=== PATIENT | female | born 1940 | race Caucasian/White ===

== ENCOUNTER 2017-06-15 09:35 | Inpatient (IN) | payer OTHER, MEDICARE ==
[~2017-06-15] VITALS: Ht 162.6 cm; Wt 63.2 kg
[~2017-06-15 09:35] MED LIST: ASPI325T PO; BROM0.072 LEFT EYE; CALCCHW25 PO; CYAN1000P SQ; FURO20TA PO; GABA100C4 PO; LISI-357 PO; OMNI1SUS LEFT EYE; OXYC-360 PO; POTA10SO13 PO; REQU3TAB PO; VIGA0.5D LEFT EYE; [UNRECOGNIZED DRUG - CODE] OR
[2017-06-15 09:38] VITALS: BP 146/68; PULSE 60; RESP 20; TEMP 97.7; O2SAT 100
--- NOTE | 2017-06-15 09:56 | PD ---
HPI Chief Complaint: General Weakness Time Seen by Provider: 09:46 Travel History International Travel<30 days: No Contact w/Intl Traveler<30days: No Traveled to known affect area: No History of Present Illness HPI The patient was seen and examined in the presence of the nurse. This patient presents with a vague story. She says that she had a fall yesterday and she had a second fall this morning. Yesterday she was sitting on the commode and fell off and struck her head on the ground. Unknown LOC. Today she was lightheaded and fell. She complains of losing her balance. She denies chest pain or palpitations. She does complain of headache and neck pain from the fall. That seems to be her chief complaint. She took a hydrocodone for her restless leg syndrome which she says she rarely does. Denies overuse of medication. No alleviating factors. Symptoms severity is moderate. Duration 24 hours. No exacerbating factors PFSH Past Medical History Autoimmune Disease: Yes Blood Disorders: Yes (ANEMIA) Anxiety: Yes Depression: No Heart Rhythm Problems: Yes ("history of tachycardia") Cancer: Yes (COLON ) Chemotherapy: Yes Diminished Hearing: Yes ([place]) Endocrine: No Fibromyalgia: Yes Gastrointestinal Disorders: Yes ("chronic diarrhea" COLON RESECTION) Genitourinary: Yes Immune Disorder: Yes Kidney Stones: Yes (LITHOTRIPSY X 5) Musculoskeletal: No Neurologic: Yes Psychiatric: No Reproductive: No Respiratory: No : 2 Ovarian Cysts: Yes (and hx of ovarian tumors) Past Surgical History Abdominal Surgery: Yes ("part of large intestine removed,colon cancer") Appendectomy: Yes Cholecystectomy: Yes Hysterectomy: Yes Oral Surgery: Yes ("upper dentures") Other Surgery: Yes Social History Alcohol Use: No Tobacco Use: No Substance Use: No Allergies-Medications (Allergen,Severity, Reaction): Coded Allergies: Sulfa (Sulfonamide Antibiotics) (Unverified Allergy, Severe, hives, ) codeine (Unverified Allergy, Severe, vomiting, 06/15/17) erythromycin base (Unverified Allergy, Severe, hives, 06/15/17) meperidine (Unverified Allergy, Severe, Nausea/Vomiting, 06/15/17) pentazocine (Unverified Allergy, Severe, PROJECTILE VOMITING, HIVES, 06/15) vancomycin (Unverified Allergy, Severe, 06/15/17) ondansetron (Unverified Allergy, Mild, Rash, 06/15/17) amoxicillin (Unverified Adverse Reaction, Severe, vomiting,cramp, 06/15/17 ) clavulanic acid (Unverified Adverse Reaction, Severe, vomiting,cramp, ) Reported Meds & Prescriptions Reported Meds & Active Scripts Active Reported Ropinirole 2 Mg Tab 2 Mg PO BID Prednisone 10 Mg Tab 10 Mg PO DAILY Calcium 1000 + D (Calcium Carbonate-Cholecalciferol) 1,000-800 Mg-Unit Tab 5 Tab PO SUNDAY Potassium Chloride ER (Potassium Chloride) 20 Meq Tab 40 Meq PO DAILY PRN Lasix (Furosemide) 20 Mg Tab 20 Mg PO DAILY PRN Review of Systems General / Constitutional: No: Fever Eyes: No: Visual changes HENT: Positive: Headaches, Lightheadedness, Neck Pain Cardiovascular: No: Chest Pain or Discomfort Respiratory: No: Shortness of Breath Gastrointestinal: No: Abdominal Pain Genitourinary: No: Dysuria Musculoskeletal: Positive: Weakness, No: Pain Skin: No Rash Neurologic: Positive: Weakness, Dizziness, Headache Psychiatric: No: Depression Endocrine: No: Polydipsia Hematologic/Lymphatic: No: Easy Bruising Physical Exam Narrative GENERAL: Well-nourished, well-developed patient with head and neck pain . SKIN: Focused skin assessment reveals no rash and nodules. Skin is Warm and dry. HEAD: Atraumatic. Normocephalic. EYES: Pupils equal and round. No scleral icterus. No injection or drainage. ENT: No nasal bleeding or discharge. Mucous membranes pink and moist. NECK: Trachea midline. No JVD. No bruising or deformity. CARDIOVASCULAR: Regular rate and rhythm. No murmur appreciated. RESPIRATORY: No accessory muscle use. Clear to auscultation. Breath sounds equal bilaterally. GASTROINTESTINAL: Abdomen soft, non-tender, nondistended. Hepatic and splenic margins not palpable. MUSCULOSKELETAL: No obvious deformities. No clubbing. No cyanosis. No edema. No midline tenderness of the back NEUROLOGICAL: Awake and alert. No obvious cranial nerve deficits. Motor grossly within normal limits. Normal speech. PSYCHIATRIC: Appropriate mood and affect; insight and judgment seem reduced . Data Data Last Documented VS Vital Signs Date Time Temp Pulse Resp B/P (MAP) Pulse Ox O2 Delivery O2 Flow Rate FiO2 06/15/17 10:20 97.7 62 18 146/68 (94) 99 Room Air Orders Orders Ct Brain W/O Iv Contrast(Rout) (06/15/17 ) Ct Cerv Spine W/O Contrast (06/15/17 ) Iv Access Insert/Monitor (06/15/17 09:47) Complete Blood Count With Diff (06/15/17 09:47) Basic Metabolic Panel (Bmp) (06/15/17 09:47) Urinalysis - C+S If Indicated (06/15/17 09:47) Time Stamp Assembler / Telemetry ANTHONY.Q8H (06/15/17 09:47) Electrocardiogram (06/15/17 ) Prothrombin Time / Inr (Pt) (06/15/17 09:47) Act Partial Throm Time (Ptt) (06/15/17 09:47) Arterial Blood Gas (Abg) (06/15/17 ) Urinary Catheter Insert/Apply (06/15/17 10:32) Admit To Inpatient (06/15/17 ) Vital Signs (Adult) ANTHONY.Q4H (06/15/17 11:26) Activity Oob With Assistance (06/15/17 11:26) Time Stamp Assembler / Telemetry ANTHONY.Q8H (06/15/17 11:26) Sodium Chlor 0.45% 1000 Ml Inj (1/2 Ns 1 (06/15/17 11:26) Inpatient Certification (06/15/17 ) Labs Laboratory Tests Test 06/15/17 09:30 06/15/17 09:35 06/15/17 10:50 White Blood Count 6.2 TH/MM3 Red Blood Count 2.93 MIL/MM3 Hemoglobin 9.3 GM/DL Hematocrit 27.3 % Mean Corpuscular Volume 93.0 FL Mean Corpuscular Hemoglobin 31.8 PG Mean Corpuscular Hemoglobin Concent 34.2 % Red Cell Distribution Width 15.3 % Platelet Count 157 TH/MM3 Mean Platelet Volume 7.8 FL Neutrophils (%) (Auto) 78.6 % Lymphocytes (%) (Auto) 11.8 % Monocytes (%) (Auto) 8.6 % Eosinophils (%) (Auto) 0.5 % Basophils (%) (Auto) 0.5 % Neutrophils # (Auto) 5.0 TH/MM3 Lymphocytes # (Auto) 0.7 TH/MM3 Monocytes # (Auto) 0.5 TH/MM3 Eosinophils # (Auto) 0.0 TH/MM3 Basophils # (Auto) 0.0 TH/MM3 CBC Comment DIFF FINAL Differential Comment Prothrombin Time 11.2 SEC Prothromb Time International Ratio 1.0 RATIO Activated Partial Thromboplast Time 27.5 SEC Blood Urea Nitrogen 64 MG/DL Creatinine 5.40 MG/DL Random Glucose 99 MG/DL Calcium Level 7.7 MG/DL Sodium Level 144 MEQ/L Potassium Level 3.1 MEQ/L Chloride Level 115 MEQ/L Carbon Dioxide Level 16.2 MEQ/L Anion Gap 13 MEQ/L Estimat Glomerular Filtration Rate 8 ML/MIN Blood Gas Puncture Site R BRACH Blood Gas Patient Temperature 98.6 Blood Gas HCO3 12 mmol/L Blood Gas Base Excess -13.4 mmol/L Blood Gas Oxygen Saturation 96 % Arterial Blood pH 7.25 Arterial Blood Partial Pressure CO2 29 mmHG Arterial Blood Partial Pressure O2 130 mmHG Arterial Blood Oxygen Content 13.7 Vol % Arterial Blood Carboxyhemoglobin 0.7 % Arterial Blood Methemoglobin 1.8 % Blood Gas Hemoglobin 9.9 G/DL Oxygen Delivery Device ROOM AIR Blood Gas Inspired Oxygen 21 % [facility] Medical Decision Making Medical Screen Exam Complete: Yes Emergency Medical Condition: Yes Medical Record Reviewed: Yes Differential Diagnosis Intracranial hemorrhage, concussion, cervical fracture, vertigo Narrative Course I have reviewed the patient's electronic medical record. I've ordered extensive workup. Her presentation is vague IV placed I reviewed her EKG which shows sinus rhythm with frequent ectopic beats Extended cardiac monitoring reveals sinus rhythm with ectopy CBC shows anemia with hemoglobin of 9.3 Metabolic profile shows hypokalemia 3.1 and significant elevation of BUN/ creatinine with a GFR of only 8 Urinalysis is running Coagulation studies are normal CT of brain is negative CT of C-spine shows arthritic change without fracture Patient has significant renal failure. I believe acute on chronic. I spoke with her electrophonic engineer who confirms creatinine was 1.8 in December of this year so has had significant worsening. ABG reveals pH of 7.25 I gave her 1 amp sodium bicarbonate She may have some symptomatic uremia given her mental status change and falls and balance problems and other vague generalized complaints I spoke with her electrophonic engineer who suggested I call Dr. Crain to see the patient I spoke with Dr. Crain who declines to see the patient I spoke with on-call electrophonic engineer Dr. Raymundo who also declines to see the patient , noting that the patient's partner Dr. Husain has privileges here and should see the patient I then spoke with Dr. Husain who says he will find a electrophonic engineer see the patient. Hospitalist has been apprised of situation and will admit Diagnosis Primary Impression: Acute on chronic kidney failure Qualified Codes: N17.9 - Acute kidney failure, unspecified; N18.9 - Chronic kidney disease, unspecified Additional Impressions: Uremia syndrome Hypokalemia Head injury due to trauma Qualified Codes: S09.90XA - Unspecified injury of head, initial encounter Admitting Information Admitting Physician Requests: Herrera Jerry MD Jun 15, 2017 09:56
[2017-06-15 09:57] LABS: BASOPHIL % 0.5 % (0.0-2.0); EOSINOPHIL % 0.5 % (0.0-4.0); HEMATOCRIT 27.3 % (35.0-46.0); HEMOGLOBIN 9.3 GM/DL (11.6-15.3); LYMPH % 11.8 % (9.0-44.0); LYMPHOCYTE # 0.7 TH/MM3 (1.0-4.8); MEAN CORPUSCULAR HEMOGLOBIN 31.8 PG (27.0-34.0); MEAN CORPUSCULAR HGB CONC 34.2 % (32.0-36.0); MEAN PLATELET VOLUME 7.8 FL (7.0-11.0); MONO % 8.6 % (0.0-8.0); MONOCYTE # 0.5 TH/MM3 (0-0.9); NEUT % 78.6 % (16.0-70.0); PLATELET COUNT 157 TH/MM3 (150-450); RED BLOOD COUNT 2.93 MIL/MM3 (4.00-5.30); RED CELL DISTRIBUTION WIDTH 15.3 % (11.6-17.2); WHITE BLOOD COUNT 6.2 TH/MM3 (4.0-11.0)
[2017-06-15] MEDS ORDERED: ROPI2TAB PO (09:58)
[2017-06-15] MEDS ORDERED: PRED10 PO (09:58)
[2017-06-15] MEDS ORDERED: FURO1TAB62 PO (09:58)
[2017-06-15] MEDS ORDERED: CALCTAB80 PO (09:58)
[2017-06-15] MEDS ORDERED: POTA-163 PO (09:58)
[2017-06-15 10:07] LABS: CALCIUM 7.7 MG/DL (8.5-10.1)
[2017-06-15 10:08] LABS: BICARBONATE 16.2 MEQ/L (21.0-32.0); PROTHROMBIN TIME - PATIENT 11.2 SEC (9.8-11.6)
[2017-06-15 10:11] LABS: CREATININE 5.4 MG/DL (0.50-1.00)
--- NOTE | 2017-06-15 10:15 | RADRPT ---
EXAM DATE/TIME: 06/15/2017 10:03 [facility] COMPARISON: CT BRAIN W/O CONTRAST, July 16, 2013, 11:11. INDICATIONS : Trauma. Fall. Syncopal episode. Right head and neck pain. RADIATION DOSE: 64.03 CTDIvol (mGy) MEDICAL HISTORY : Carcinoma, colon. Renal calculi. SURGICAL HISTORY : Appendectomy. Cholecystectomy.Hysterectomy. ENCOUNTER: Initial ACUITY: 1 day PAIN SCALE: 7/10 LOCATION: cranial TECHNIQUE: Multiple contiguous axial images were obtained of the head. Using automated exposure control and adj ustment of the mA and/or kV according to patient size, radiation dose was kept as low as reasonably a chievable to obtain optimal diagnostic quality images. DICOM format image data is available electro nically for review and comparison. FINDINGS: CEREBRUM: The ventricles are normal for age. No evidence of midline shift, mass lesion, hemorrhage or acute in farction. No extra-axial fluid collections are seen. POSTERIOR FOSSA: The cerebellum and brainstem are intact. The 4th ventricle is midline. The cerebellopontine angle i s unremarkable. EXTRACRANIAL: The visualized portion of the orbits is intact. SKULL: The calvaria is intact. No evidence of skull fracture. CONCLUSION: Negative noncontrast CT brain. Berto Jacobs MD on June 15, 2017 at 10:13 Board Certified Radiologist. This report was verified electronically.
[2017-06-15 10:20] VITALS: BP 146/68; PULSE 62; RESP 18; TEMP 97.7; O2SAT 99
--- NOTE | 2017-06-15 10:50 | RADRPT ---
EXAM DATE/TIME: 06/15/2017 10:03 [facility] COMPARISON: CT CERVICAL SPINE W/O CONTRAST, July 16, 2013, 11:11. INDICATIONS : Trauma. Fall. Syncopal episode. Right head and neck pain. RADIATION DOSE: 24.78 CTDIvol (mGy) MEDICAL HISTORY : Carcinoma, colon. Renal calculi. SURGICAL HISTORY : Appendectomy. Cholecystectomy.Hysterectomy. ENCOUNTER: Initial ACUITY: 1 day PAIN SCALE: 7/10 LOCATION: Right neck TECHNIQUE: Volumetric scanning of the cervical spine was performed. Multiplanar reconstructions in the sagittal, coronal and oblique axial planes were performed. Using automated exposure control and adjustment o f the mA and/or kV according to patient size, radiation dose was kept as low as reasonably achievable to obtain optimal diagnostic quality images. DICOM format image data is available electronically f or review and comparison. FINDINGS: There is straightening of the upper cervical lordosis. Moderate severity degenerative changes at the C4-C7 interspaces with prominent anterior and posterior osteophytes have similar appearance and douglas rity when compared to prior CT cervical spine and 2013. The atlantoaxial articulation is intact. Th e posterior elements are normal without evidence of locked or perched facets. No fracture is seen. On the axial images, there is moderate severity left-sided bony neural foramina l stenosis at C4-5 and bilaterally at C5-6. Neural foraminal stenosis is similar in severity to prio r CT. CONCLUSION: 1. No evidence of compression deformity or spondylolisthesis. 2. Moderate severity discogenic degenerative changes in the lower cervical spine with neural foramina stenosis as described above. The overall severity is similar to prior CT scan 2013. Berto Jacobs MD on June 15, 2017 at 10:41 Board Certified Radiologist. This report was verified electronically.
[2017-06-15] MEDS ORDERED: SODIUM BICARBONATE 8.4% INJ 50 MEQ/50 ML SYR IV PUSH ONE (11:45)
[2017-06-15] MEDS: SODIUM CHLOR 0.45% 1000 ML INJ 1,000 ML IV SCH (12:18)
[2017-06-15 12:28] LABS: BILIRUBIN, URINE NEG (NEG); BLOOD, URINE SMALL (NEG); GLUCOSE,URINE NEG (NEG); KETONE, URINE NEG (NEG); NITRITE,URINE NEG (NEG); URINE LEUKOCYTE ESTERASE MOD (NEG)
[2017-06-15 12:35] LABS: URINE COLOR YELLOW (YELLW/STRAW)
[2017-06-15 12:36] LABS: BACTERIA, URINE MANY /hpf; SQUAMOUS EPITHELIAL CELL URINE 0-5 /hpf (0-5); WBC, URINE 100-200 /hpf (0-5); WHITE BLOOD CELL CLUMPS MANY
--- NOTE | 2017-06-15 12:58 | HHI.HP ---
[facility] Antonio Trammell MD Admission Diagnosis acute on chronic renal failure,uremia Diagnoses: Chief Complaint: passing out Travel History International Travel<30 Days: No Contact w/Intl Traveler <30 Da: No Traveled to Known Affected Are: No History of Present Illness 77-year-old female being admitted for acute renal failure with strokelike symptoms. Patient was in her usual state of health until about 2 nights ago when she first reported falling off the toilet seat. At that time she thought she was simply tired due to having poor sleep due to substantial social stressors, but is unsure if she actually had a true syncopal episode or not. She came to rather quickly and was able to go to sleep that night. Her symptoms recurred again early this morning when she was cutting pineapples while standing and then apparently fell onto the floor on her backside. She denies having any substantial shortness of breath or chest pain or palpitations immediately proceeding during or after the event. When she woke up she found herself on the floor and had a headache. She was able to stand up but noted that she had a very staggered wobbly unstable gait, did not linger to one side more than the other. She also reports having transient visual changes for a few minutes where she saw "gorgeous colors." She then went outside where her neighbor - who was walking her dog - noticed that she had garbled speech. At that point the patient contacted one of her other friends to bring her to the emergency room. Patient denies any noncompliance with her medication regimen, reports taking all her meds regularly in the past few days. 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 Past Surgical History colonic resection for colon cancer Appendectomy Cholecystectomy Hysterectomy Multiple eye surgeries including cataracts Allergies: Coded Allergies: Sulfa (Sulfonamide Antibiotics) (Unverified Allergy, Severe, hives, ) codeine (Unverified Allergy, Severe, vomiting, 06/15/17) erythromycin base (Unverified Allergy, Severe, hives, 06/15/17) meperidine (Unverified Allergy, Severe, Nausea/Vomiting, 06/15/17) pentazocine (Unverified Allergy, Severe, PROJECTILE VOMITING, HIVES, 06/15) vancomycin (Unverified Allergy, Severe, 06/15/17) ondansetron (Unverified Allergy, Mild, Rash, 06/15/17) amoxicillin (Unverified Adverse Reaction, Severe, vomiting,cramp, 06/15/17 ) clavulanic acid (Unverified Adverse Reaction, Severe, vomiting,cramp, ) Family History CAD Social History denies cig, illicit drug use, only light social ETOH usage, works as a nurse Physical Exam Vital Signs Vital Signs Date Time Temp Pulse Resp B/P (MAP) Pulse Ox O2 Delivery O2 Flow Rate FiO2 06/15/17 10:20 97.7 62 18 146/68 (94) 99 Room Air 06/15/17 09:38 97.7 60 20 146/68 (94) 100 Physical Exam GENERAL: This is a well-nourished, well-developed patient, in no apparent distress. SKIN: No rashes, ecchymoses or lesions. Cool and dry. HEAD: Atraumatic. Normocephalic. Mild right occiput tenderness to palpation with no visible bruise EYES: Pupils equal round and reactive. Extraocular motions intact. No scleral icterus. No injection or drainage. ENT: Nose without bleeding, purulent drainage or septal hematoma. Throat without erythema, tonsillar hypertrophy or exudate. Uvula midline. Airway patent. NECK: Trachea midline. Supple, nontender, no meningeal signs. CARDIOVASCULAR: Regular rate, possible irregular heart rhythm, 1/6 ejection murmur RESPIRATORY: Clear to auscultation. Breath sounds equal bilaterally. No wheezes , rales, or rhonchi. GASTROINTESTINAL: Abdomen soft, non-tender, nondistended. No hepato-splenomegaly , or palpable masses. No guarding. MUSCULOSKELETAL: Extremities without clubbing, cyanosis, or edema. No joint tenderness, effusion, or edema noted. No calf tenderness. Negative Homans sign bilaterally. NEUROLOGICAL: Patellar reflexes are diminished bilaterally, patient has no slurred speech, no facial droop, tongue and uvula are in midline, extraocular motions are intact. Patient does have decreased sensation on the right side of her face, she has 4 out of 5 proximal right upper extremity flexion and extension strength with 5 out of 5 on the left upper extremity , while she has 5 out of 5 fist grinding machine operator portable bilaterally. She also has 3 out of 5 proximal lower extremity strength whereas her left is 5 out of 5. She also has decreased plantar flexion and dorsiflexion strength on the right in comparison to the left. She has intact finger to nose to finger bilaterally and intact heel to hawk bilaterally Psychiatry: Appropriate mood and affect Laboratory Laboratory Tests Test 06/15/17 09:30 06/15/17 09:35 06/15/17 10:50 06/15/17 12:22 White Blood Count 6.2 Red Blood Count 2.93 Hemoglobin 9.3 Hematocrit 27.3 Mean Corpuscular Volume 93.0 Mean Corpuscular Hemoglobin 31.8 Mean Corpuscular Hemoglobin Concent 34.2 Red Cell Distribution Width 15.3 Platelet Count 157 Mean Platelet Volume 7.8 Neutrophils (%) (Auto) 78.6 Lymphocytes (%) (Auto) 11.8 Monocytes (%) (Auto) 8.6 Eosinophils (%) (Auto) 0.5 Basophils (%) (Auto) 0.5 Neutrophils # (Auto) 5.0 Lymphocytes # (Auto) 0.7 Monocytes # (Auto) 0.5 Eosinophils # (Auto) 0.0 Basophils # (Auto) 0.0 CBC Comment DIFF FINAL Differential Comment Prothrombin Time 11.2 Prothromb Time International Ratio 1.0 Activated Partial Thromboplast Time 27.5 Blood Urea Nitrogen 64 Creatinine 5.40 Random Glucose 99 Calcium Level 7.7 Sodium Level 144 Potassium Level 3.1 Chloride Level 115 Carbon Dioxide Level 16.2 Anion Gap 13 Estimat Glomerular Filtration Rate 8 Blood Gas Puncture Site R BRACH Blood Gas Patient Temperature 98.6 Blood Gas HCO3 12 Blood Gas Base Excess -13.4 Blood Gas Oxygen Saturation 96 Arterial Blood pH 7.25 Arterial Blood Partial Pressure CO2 29 Arterial Blood Partial Pressure O2 130 Arterial Blood Oxygen Content 13.7 Arterial Blood Carboxyhemoglobin 0.7 Arterial Blood Methemoglobin 1.8 Blood Gas Hemoglobin 9.9 Oxygen Delivery Device ROOM AIR Blood Gas Inspired Oxygen 21 Urine Collection Type CLEAN CATCH Urine Color YELLOW Urine Turbidity SLIGHT Urine pH 6.0 Urine Specific [place] 1.012 Urine Protein 100 Urine Glucose (UA) NEG Urine Ketones NEG Urine Occult Blood SMALL Urine Nitrite NEG Urine Bilirubin NEG Urine Leukocyte Esterase MOD Urine RBC 10-14 Urine WBC 100-200 Urine WBC Clumps MANY Urine Squamous Epithelial Cells 0-5 Urine Bacteria MANY Microscopic Urinalysis Comment CULTURE INDICATED Urine Collection Time 12:22 Date/Time Source Procedure Growth Status 06/15/17 12:22 Urine Clean Catch Urine Culture Pending Received Result Diagram: 06/15/1730 06/15/17 0935 Caprini VTE Risk Assessment Caprini VTE Risk Assessment: Mod/High Risk (score >= 2) Caprini Risk Assessment Model Point Value = 1 Point Value = 2 Point Value = 3 Point Value = 5 Age 41-60 Minor surgery BMI > 25 kg/m2 Swollen legs Varicose veins or History of unexplained or recurrent spontaneous Oral contraceptives or hormone replacement Sepsis (< 1 month) Serious lung disease, including pneumonia (< 1 month) Abnormal pulmonary function Acute myocardial infarction Congestive heart failure (< 1 month) History of inflammatory bowel disease Medical patient at bed rest Age 61-74 Arthroscopic surgery Major open surgery (> 45 min) Laparoscopic surgery (> 45 min) Malignancy Confined to bed (> 72 hours) Immobilizing plaster cast Central venous access Age >= 75 History of VTE Family history of VTE Factor V Leiden Prothrombin [id number] Lupus anticoagulant Anticardiolipin antibodies Elevated serum homocysteine Heparin-induced thrombocytopenia Other congenital or acquired thrombophilia Stroke (< 1 month) Elective arthroplasty Hip, pelvis, or leg fracture Acute spinal cord injury (< 1 month) Prophylaxis Regimen Total Risk Factor Score Risk Level Prophylaxis Regimen 0-1 Low Early ambulation 2 Moderate Order ONE of the following: *Sequential Compression Device (SCD) *Heparin 5000 units SQ BID 3-4 Higher Order ONE of the following medications: *Heparin 5000 units SQ TID *Enoxaparin/Lovenox 40 mg SQ daily (WT < 150 kg, CrCl > 30 mL/min) *Enoxaparin/Lovenox 30 mg SQ daily (WT < 150 kg, CrCl > 10-29 mL/min) *Enoxaparin/Lovenox 30 mg SQ BID (WT < 150 kg, CrCl > 30 mL/min) AND/OR *Sequential Compression Device (SCD) 5 or more Highest Order ONE of the following medications: *Heparin 5000 units SQ TID (Preferred with Epidurals) *Enoxaparin/Lovenox 40 mg SQ daily (WT < 150 kg, CrCl > 30 mL/min) *Enoxaparin/Lovenox 30 mg SQ daily (WT < 150 kg, CrCl > 10-29 mL/min) *Enoxaparin/Lovenox 30 mg SQ BID (WT < 150 kg, CrCl > 30 mL/min) AND *Sequential Compression Device (SCD) Assessment and Plan Assessment and Plan Suspected stroke versus TIA - Brain MRI without contrast, carotid ultrasounds (unable to proceed with CT angiogram of head and neck given renal failure), echocardiogram. Not a candidate for TPA given that last known time of no known neurological deficits is unclear - Fall precautions, speech therapy, occupational therapy, physical therapy - Permissive hypertension - Starting aspirin and Lipitor - Ordered stat EKG, independently reviewed by me, showing sinus arrhythmia, no A. fib syncope - ? from stroke vs metabolic acidosis 2/2 ARF - IVFs, telemetry ARF on CKD - IV fluids with bicarbonate, renal function panel in a.m. - Consulting nephrology when appropriate responding loss prevention consultant has been identified metabolic acidosis - 2/2 dehydration superimposed on CKD - replacing w/ IVFs and bicarb Restless leg - Suspect this is from possible iron deficiency anemia from her chronic kidney disease - We'll order ferritin for now and see if iron replacement can help if warranted - Continue home ropinirole Physician Certification 2 Midnight Certification Type: Admission for Inpatient Services Order for Inpatient Services The services are ordered in accordance with Medicare regulations or non- Medicare payer requirements, as applicable. In the case of services not specified as inpatient-only, they are appropriately provided as inpatient services in accordance with the 2-midnight benchmark. Estimated LOS (days): 3 3 days is the estimated time the patient will need to remain in the hospital, assuming treatment plan goals are met and no additional complications. Post-Hospital Plan: Not yet determined Smith Hood MD Jun 15, 2017 12:58
[2017-06-15] MEDS ORDERED: ATORVASTATIN 40 MG TAB PO ONE (13:00)
--- NOTE | 2017-06-15 13:51 | RADRPT ---
EXAM DATE/TIME: 06/15/2017 13:25 [facility] COMPARISON: No previous studies available for comparison. INDICATIONS : Transient ischemic attack. MEDICAL HISTORY : Colon cancer. Fibromyalgia. Anemia. Ovarian cysts. Chemotherapy. SURGICAL HISTORY : Appendectomy. Cholecystectomy. Hysterectomy. Colon resection. Lithotripsy. Orthopedic surgery, patell a and right knee. ENCOUNTER: Initial ACUITY: 1 day PAIN SCORE: 0/10 LOCATION: Bilateral neck PEAK SYSTOLIC VELOCITIES (cm/sec): ICA/CCA RATIO: Right: 1.7 Left: 1.2 ICA: Right: 114 Left: 98 CCA: Right: 68 Left: 83 ECA: Right: 67 Left: 67 VERTEBRAL: Right: 74 antegrade Left: 60 antegrade Elevated flow velocities and ICA/CCA ratios have been found to correlate with increased degrees of vessel stenosis, calculated as percentage of diameter relative to a normal segment of distal ICA/CCA FINDINGS: RIGHT CAROTID: Mild plaque formation in the carotid bulb and proximal internal carotid artery without shadowing. No significant widening of the velocity waveforms. LEFT CAROTID: Mild plaque formation the carotid bulb and proximal internal carotid artery without shadowing. No si gnificant widening of the velocity waveforms. VERTEBRAL ARTERIES: Antegrade flow is seen in both vertebral arteries. CONCLUSION: Mild bilateral plaque formation with hemodynamic profile characteristic of less than 50% stenosis. Berto Jacobs MD on June 15, 2017 at 13:48 Board Certified Radiologist. This report was verified electronically.
[2017-06-15] MEDS: ASPIRIN 325 MG TAB PO SCH (13:55)
[2017-06-15] MEDS ORDERED: SODIUM BICARBONATE 8.4% INJ 75 MEQ in SODIUM CHLOR 0.9% 1000 ML INJ 1,000 ML IV SCH (14:00)
--- NOTE | 2017-06-15 16:04 | RADRPT ---
EXAM DATE/TIME: 06/15/2017 15:15 [facility] COMPARISON: CT BRAIN W/O CONTRAST, July 16, 2013, 11:11. CT BRAIN W/O CONTRAST, June 15, 2017, 10:03. INDICATIONS : Visual changes. MEDICAL HISTORY : Carcinoma, colon. SURGICAL HISTORY : Colon resection. Hysterectomy. Cholecystectomy. ENCOUNTER: Initial ACUITY: 1 day PAIN SCORE: 0/10 LOCATION: cranial TECHNIQUE: Multiplanar, multisequence MRI of the brain was performed without contrast. FINDINGS: CEREBRUM: The ventricles are normal for age. No evidence of midline shift, mass lesion, hemorrhage or acute in farction. No extraaxial fluid collections are seen. The pituitary gland and suprasellar cistern are normal in configuration. WHITE MATTER: There is scattered and partially confluent areas of T2 prolongation in the supratentorial white matte r. POSTERIOR FOSSA: The cerebellum and brainstem are intact. The 4th ventricle is midline. The cerebellopontine angle is unremarkable. The cerebellar tonsils are normal in position. DIFFUSION IMAGING: No focal areas of restricted diffusion are seen. No evidence of acute infarction. EXTRACRANIAL: The visualized portions of the orbits and paranasal sinuses are unremarkable. CONCLUSION: Nonspecific chronic white matter change, probably ischemic. Otherwise negative noncontrast MRI of th e brain. Berto Jacobs MD on June 15, 2017 at 15:54 Board Certified Radiologist. This report was verified electronically.
[2017-06-15 16:30] VITALS: BP 133/57; PULSE 60; RESP 14; TEMP 96.3; O2SAT 97
[2017-06-15 16:53] LABS: IRON (FE) 92 MCG/DL (50-170)
[2017-06-15 16:56] LABS: FERRITIN 85 NG/ML (8-252)
--- NOTE | 2017-06-15 17:21 | PD.CONS ---
HPI Service Nephrology Consult Requested By Dr. 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 Doll, she stated that she had some nausea and vomiting along with poor oral intake and now creatinine is around 5.40. Review of Systems Constitutional: COMPLAINS OF: Fatigue Gastrointestinal: COMPLAINS OF: Diarrhea, Nausea, Vomiting Musculoskeletal: COMPLAINS OF: Joint pain Psychiatric: COMPLAINS OF: Anxiety, Confusion Past Family Social History Allergies: Coded Allergies: Sulfa (Sulfonamide Antibiotics) (Unverified Allergy, Severe, hives, ) codeine (Unverified Allergy, Severe, vomiting, 06/15/17) erythromycin base (Unverified Allergy, Severe, hives, 06/15/17) meperidine (Unverified Allergy, Severe, Nausea/Vomiting, 06/15/17) pentazocine (Unverified Allergy, Severe, PROJECTILE VOMITING, HIVES, 06/15) vancomycin (Unverified Allergy, Severe, 06/15/17) ondansetron (Unverified Allergy, Mild, Rash, 06/15/17) amoxicillin (Unverified Adverse Reaction, Severe, vomiting,cramp, 06/15/17 ) clavulanic acid (Unverified Adverse Reaction, Severe, vomiting,cramp, ) Past Medical History Acute renal failure and chronic kidney disease History of atrial fibrillation Colon cancer Bowel resection Dumping syndrome Hyperlipidemia Anemia History of chemotherapy and radiation Fibromyalgia Past Surgical History Extensive abdominal surgery Chemotherapy and radiation Lithotripsy Ovarian surgery Right knee surgery Reported Medications Reported Meds & Active Scripts Active Reported Ropinirole 2 Mg Tab 2 Mg PO BID Prednisone 10 Mg Tab 10 Mg PO DAILY Calcium 1000 + D (Calcium Carbonate-Cholecalciferol) 1,000-800 Mg-Unit Tab 5 Tab PO SUNDAY Potassium Chloride ER (Potassium Chloride) 20 Meq Tab 40 Meq PO DAILY PRN Lasix (Furosemide) 20 Mg Tab 20 Mg PO DAILY PRN Active Ordered Medications Current Medications Medications (Trade) Dose Ordered Sig/Ortiz Route Start Time Stop Time Status Last Admin Sodium Chloride 1,000 ml @ 75 mls/hr [id number] IV 06/15/17 11:26 Future Hold 06/15/17 12:18 (Aspirin) 325 mg DAILY PO 06/15/17 13:00 06/15/17 13:55 (Requip) 2 mg BID PO 06/15/17 13:00 06/15/17 13:57 (Lipitor) 40 mg HS PO 06/16/17 21:00 (Heparin Inj) 5,000 units Q8HR SQ 06/15/17 16:00 Potassium Chloride 20 meq/ Lactated Ringer's 1,010 ml @ 100 mls/hr [id number] IV 06/15/17 17:15 UNV Family History History of cardiac disease and pacemaker in the family Social History She denies smoking or alcohol use. She used to be a nurse Physical Exam Vital Signs Vital Signs Date Time Temp Pulse Resp B/P (MAP) Pulse Ox O2 Delivery O2 Flow Rate FiO2 06/15/17 14:47 06/15/17 10:20 97.7 62 18 146/68 (94) 99 Room Air 06/15/17 09:38 97.7 60 20 146/68 (94) 100 Physical Exam GENERAL: Well-nourished, well-developed pale appears patient. SKIN: Warm and dry. HEAD: Normocephalic. EYES: No scleral icterus. No injection or drainage. NECK: Supple, trachea midline. No JVD or lymphadenopathy. CARDIOVASCULAR: irregular RESPIRATORY: Breath sounds equal bilaterally. No accessory muscle use. GASTROINTESTINAL: Abdomen soft, non-tender, nondistended. Multiple surgical scars on the abdominal wall. EXTREMITIES: No cyanosis, or edema. NEUROLOGICAL: Awake, alert, and oriented x 3. Non-focal. Laboratory Laboratory Tests Test 06/15/17 09:30 06/15/17 09:35 06/15/17 10:50 06/15/17 12:22 White Blood Count 6.2 Red Blood Count 2.93 Hemoglobin 9.3 Hematocrit 27.3 Mean Corpuscular Volume 93.0 Mean Corpuscular Hemoglobin 31.8 Mean Corpuscular Hemoglobin Concent 34.2 Red Cell Distribution Width 15.3 Platelet Count 157 Mean Platelet Volume 7.8 Neutrophils (%) (Auto) 78.6 Lymphocytes (%) (Auto) 11.8 Monocytes (%) (Auto) 8.6 Eosinophils (%) (Auto) 0.5 Basophils (%) (Auto) 0.5 Neutrophils # (Auto) 5.0 Lymphocytes # (Auto) 0.7 Monocytes # (Auto) 0.5 Eosinophils # (Auto) 0.0 Basophils # (Auto) 0.0 CBC Comment DIFF FINAL Differential Comment Prothrombin Time 11.2 Prothromb Time International Ratio 1.0 Activated Partial Thromboplast Time 27.5 Blood Urea Nitrogen 64 Creatinine 5.40 Random Glucose 99 Calcium Level 7.7 Sodium Level 144 Potassium Level 3.1 Chloride Level 115 Carbon Dioxide Level 16.2 Anion Gap 13 Estimat Glomerular Filtration Rate 8 Iron Level 92 Ferritin 85 Blood Gas Puncture Site R BRACH Blood Gas Patient Temperature 98.6 Blood Gas HCO3 12 Blood Gas Base Excess -13.4 Blood Gas Oxygen Saturation 96 Arterial Blood pH 7.25 Arterial Blood Partial Pressure CO2 29 Arterial Blood Partial Pressure O2 130 Arterial Blood Oxygen Content 13.7 Arterial Blood Carboxyhemoglobin 0.7 Arterial Blood Methemoglobin 1.8 Blood Gas Hemoglobin 9.9 Oxygen Delivery Device ROOM AIR Blood Gas Inspired Oxygen 21 Urine Collection Type CLEAN CATCH Urine Color YELLOW Urine Turbidity SLIGHT Urine pH 6.0 Urine Specific [place] 1.012 Urine Protein 100 Urine Glucose (UA) NEG Urine Ketones NEG Urine Occult Blood SMALL Urine Nitrite NEG Urine Bilirubin NEG Urine Leukocyte Esterase MOD Urine RBC 10-14 Urine WBC 100-200 Urine WBC Clumps MANY Urine Squamous Epithelial Cells 0-5 Urine Bacteria MANY Microscopic Urinalysis Comment CULTURE INDICATED Urine Collection Time 12:22 Date/Time Source Procedure Growth Status 06/15/17 12:22 Urine Clean Catch Urine Culture Pending Received Result Diagram: 06/15/17 0930 06/15/17 0935 Imaging Last Impressions Head CT 06/15/17 0000 Signed Impressions: Service Date/Time: Thursday, June 15, 2017 10:03 - CONCLUSION: Negative noncontrast CT brain. Berto Jacobs MD Cervical Spine CT 06/15/17 0000 Signed Impressions: Service Date/Time: Thursday, June 15, 2017 10:03 - CONCLUSION: 1. No evidence of compression deformity or spondylolisthesis. 2. Moderate severity discogenic degenerative changes in the lower cervical spine with neural foramina stenosis as described above. The overall severity is similar to prior CT scan 2013. Berto Jacobs MD Carotid Artery Ultrasound 06/15/17 0000 Signed Impressions: Service Date/Time: Thursday, June 15, 2017 13:25 - CONCLUSION: Mild bilateral plaque formation with hemodynamic profile characteristic of less than 50%% stenosis. Berto Jacobs MD Brain MRI 06/15/17 0000 Signed Impressions: Service Date/Time: Thursday, June 15, 2017 15:15 - CONCLUSION: Nonspecific chronic white matter change, probably ischemic. Otherwise negative noncontrast MRI of the brain. Berto Jacobs MD Assessment and Plan Problem List: (1) Acute on chronic kidney failure ICD Codes: N17.9 - Acute kidney failure, unspecified; N18.9 - Chronic kidney disease, unspecified Status: Acute Plan: Patient is dehydrated she has hyperchloremic metabolic acidosis Hypokalemia Given the history of dumping syndrome and chronic diarrhea I will treat her with lactated Ringer's with potassium supplementation Baseline creatinine is 1.7 Continue to hydrate then may switch IV fluid once acidosis resolved to normal saline Continue monitor urine output Avoid nephrotoxic agents Patient appears to have UTI and started on Levaquin (2) Hypokalemia ICD Codes: E87.6 - Hypokalemia; N18.9 - Chronic kidney disease, unspecified Status: Acute Plan: Due to chronic diarrhea (3) History of colon cancer ICD Codes: Z85.038 - History of colon cancer Status: Acute Plan: Patient has surgical resection (4) Chronic kidney disease, stage III (moderate) ICD Codes: N18.3 - Chronic kidney disease, stage III (moderate) Status: Acute Plan: As above creatinine 1.7 (5) Acidosis, metabolic ICD Codes: E87.2 - Acidosis Status: Acute Plan: Patient has a hyperchloremic metabolic acidosis due to chronic diarrhea (6) UTI (lower urinary tract infection) ICD Codes: N39.0 - Urinary tract infection, site not specified Plan: Follow cultures signs started on Levaquin 250 mg every 48 hours Problem Qualifiers (1) Acute on chronic kidney failure: Qualified Codes: N17.9 - Acute kidney failure, unspecified; N18.9 - Chronic kidney disease, unspecified Bernardo Rubio MD Jun 15, 2017 17:21
[2017-06-15] MEDS ORDERED: LEVOFLOXACIN 250 MG TAB PO ONE (18:00)
[2017-06-15] MEDS: POTASSIUM CHLORIDE INJ 20 MEQ in LACTATED RINGER'S 1000 ML INJ 1,000 ML IV SCH (18:53)
[2017-06-15] MEDS: HEPARIN SODIUM - SQ 10,000 UNITS/ML VIAL SQ SCH ×2 (19:02→20:42)
[2017-06-15 20:00] VITALS: BP_SYST 111; BP_SYST 150; BP_DIAS 50; BP_DIAS 73; PULSE 48; PULSE 60; PULSE 84; RESP 18; RESP 20; TEMP 97.1; O2SAT 100; O2SAT 97
[2017-06-16] VITALS (7 sets, daily range): BP systolic 99–138; BP diastolic 49–68; PULSE 59–74; RESP 17–18; TEMP 95.9–98.9; O2SAT 95–100
[2017-06-16] MEDS ORDERED: ACETAMIN 325 MG/BUTALBITAL 50 MG/CAFFEINE 40 MG TAB PO ONE (04:45)
[2017-06-16] MEDS: POTASSIUM CHLORIDE INJ 20 MEQ in LACTATED RINGER'S 1000 ML INJ 1,000 ML IV SCH ×2 (04:52→14:12)
[2017-06-16] MEDS: HEPARIN SODIUM - SQ 10,000 UNITS/ML VIAL SQ SCH ×3 (04:54→19:47)
[2017-06-16 07:30] LABS: BICARBONATE 18.8 MEQ/L (21.0-32.0); CALCIUM 7.3 MG/DL (8.5-10.1); CREATININE 4.7 MG/DL (0.50-1.00); MAGNESIUM 1.7 MG/DL (1.5-2.5); PHOSPHORUS 4.7 MG/DL (2.5-4.9)
[2017-06-16] MEDS ORDERED: METOCLOPRAMIDE HCL 10 MG/2 ML VIAL IV PUSH ONE (09:45)
[2017-06-16] MEDS: ASPIRIN 325 MG TAB PO SCH (09:58)
--- NOTE | 2017-06-16 14:39 | HHI.PR ---
Subjective Remarks Nursing denies any acute deterioration since last night. Patient herself is complaining of her restless legs even though she has been restarted on her home Requip. After being informed that her MRI shows no strokes, she then states that she's had weakness in her right leg for a while, her friends in the room at that moment interject and state that she's had that problem for about a year. When asked if she has any neck pains or upper back pains, the patient says she has mild right-sided chronic neck pain. Denies any chest pain or shortness of breath or lightheadedness since admission. Objective Vital Signs Date Time Temp Pulse Resp B/P (MAP) Pulse Ox O2 Delivery O2 Flow Rate FiO2 06/16/17 12:00 97.2 66 18 101/68 (79) 96 06/16/17 08:00 96.9 62 17 99/54 (69) 100 06/16/17 00:00 95.9 62 18 112/49 (70) 98 06/15/17 20:00 60 06/15/17 20:00 97.1 84 20 150/73 (98) 97 06/15/17 16:30 96.3 60 14 133/57 (82) 97 06/15/17 14:47 I/O 06/15/17 06/15/17 06/15/17 06/16/17 06/16/17 06/16/17 07:00 15:00 23:00 07:00 15:00 23:00 Intake Total 92 ml 720 ml 1482 ml Output Total 400 ml 600 ml 900 ml Balance -308 ml 720 ml 882 ml -900 ml Intake Oral 720 ml 420 ml IV Total 92 ml 1062 ml Output Urine Total 400 ml 600 ml 900 ml # Bowel Movements 1 1 Result Diagram: 06/15/17 0930 06/16/17 0657 Objective Remarks Still has 4/5 right proximal upper extremity strength, 5 out of 5 on the left left upper extremity strength 3 out of 5 strength in right lower extremity proximally, 5 out of 5 strength in the left lower extremity proximally No facial droop, no slurred speech, extraocular motions intact A/P Assessment and Plan Right-sided weakness - Apparently chronic, not acute; brain MRI without contrast showing no acute strokes. Echocardiogram and ultrasounds were unremarkable. - Suspect the patient might nerve impingement given foraminal stenosis noted on CT neck. My benefit from NSG eval as outpatient. - Continue physical therapy and occupational therapy. syncope - no recurrence while inpatient - ? from stroke vs metabolic acidosis 2/2 ARF - IVFs, telemetry - Aberrant tele strips noted, not true VF nor VT since pt was constantly shuffling her body due to her restless legs ARF on CKD - Appreciate nephrology's were immunizations, continue IV fluids, improving since yesterday, trend BMP in a.m. metabolic acidosis - Suspect improvement given improvement in acute renal failure, continue treatment as above Restless leg - Suspect this is from possible iron deficiency anemia from her chronic kidney disease - We'll start oral iron supplements - Continue home ropinirole Smith Hood MD Jun 16, 2017 14:39
--- NOTE | 2017-06-16 17:02 | HHI.NPPN ---
Subjective History of Present Illness 77 year old with ARF/CKD UTI Dehydration Review of Systems General Constitutional: Fatigue Objective Data Data 06/16/17 06/17/17 19:00 07:00 Output Total 900 ml Balance -900 ml Output Urine Total 900 ml # Bowel Movements 1 Vital Signs Date Time Temp Pulse Resp B/P (MAP) Pulse Ox O2 Delivery O2 Flow Rate FiO2 06/16/17 12:00 97.2 66 18 101/68 (79) 96 06/16/17 10:00 74 06/16/17 08:00 96.9 62 17 99/54 (69) 100 06/16/17 00:00 95.9 62 18 112/49 (70) 98 06/15/17 20:00 60 06/15/17 20:00 97.1 84 20 150/73 (98) 97 -: 06/15/17 0930 06/16/17 0657 Physical Exam General Appearance: Well Developed Neck Neck Exam: Neck Supple Pulmonary Resp Exam: Clear Bilaterally, Breath Sounds Equal Cardiology CV Exam: Irregular Gastrointestinal/Abdomen GI Exam: Soft, Non-Tender, Bowel Sounds Present Extremeties Extremities Exam: No Edema Assessment/Plan Problem List: (1) Acute on chronic kidney failure ICD Codes: N17.9 - Acute kidney failure, unspecified; N18.9 - Chronic kidney disease, unspecified Status: Acute Plan: Patient is dehydrated she has hyperchloremic metabolic acidosis Hypokalemia Cr declined acidosis improved follow BMP Baseline creatinine is 1.7 Continue to hydrate then may switch IV fluid once acidosis resolved to normal saline Continue monitor urine output Avoid nephrotoxic agents Patient appears to have UTI and started on Levaquin (2) Hypokalemia ICD Codes: E87.6 - Hypokalemia; N18.9 - Chronic kidney disease, unspecified Status: Acute Plan: Due to chronic diarrhea (3) History of colon cancer ICD Codes: Z85.038 - History of colon cancer Status: Acute Plan: Patient has surgical resection (4) Chronic kidney disease, stage III (moderate) ICD Codes: N18.3 - Chronic kidney disease, stage III (moderate) Status: Acute Plan: As above creatinine 1.7 (5) Acidosis, metabolic ICD Codes: E87.2 - Acidosis Status: Acute Plan: Patient has a hyperchloremic metabolic acidosis due to chronic diarrhea (6) UTI (lower urinary tract infection) ICD Codes: N39.0 - Urinary tract infection, site not specified Plan: Follow cultures signs started on Levaquin 250 mg every 48 hours Problem Qualifiers (1) Acute on chronic kidney failure: Qualified Codes: N17.9 - Acute kidney failure, unspecified; N18.9 - Chronic kidney disease, unspecified Bernardo Rubio MD Jun 16, 2017 17:02
[2017-06-16] MEDS: ATORVASTATIN 40 MG TAB PO SCH (19:47)
[2017-06-16] MEDS: SODIUM CHLOR 0.45% 1000 ML INJ 1,000 ML IV SCH (23:30)
[2017-06-17] VITALS (9 sets, daily range): BP systolic 115–145; BP diastolic 60–77; PULSE 60–84; RESP 16–20; TEMP 96.8–98.6; O2SAT 94–100
[2017-06-17] MEDS: POTASSIUM CHLORIDE INJ 20 MEQ in LACTATED RINGER'S 1000 ML INJ 1,000 ML IV SCH ×2 (01:00→11:16)
[2017-06-17] MEDS: HEPARIN SODIUM - SQ 10,000 UNITS/ML VIAL SQ SCH ×3 (06:26→20:32)
[2017-06-17 07:22] LABS: BICARBONATE 15.1 MEQ/L (21.0-32.0); CALCIUM 7.1 MG/DL (8.5-10.1); CREATININE 4.3 MG/DL (0.50-1.00)
[2017-06-17 07:42] LABS: CALCIUM-PROTEIN CORRECTED 7.9 MG/DL (8.5-10.1); TOTAL PROTEIN 5.6 GM/DL (6.4-8.2)
[2017-06-17] MEDS: ASPIRIN 325 MG TAB PO SCH (09:04)
--- NOTE | 2017-06-17 11:04 | HHI.PR ---
Subjective Remarks Nursing denies any acute deterioration since last night. Patient states that her Parosns was inserted in the emergency room. Denies having any suprapubic urinary symptoms prior to admission despite UTI being confirmed on culture. Denies any lightheadedness. She says she worked well with therapy yesterday. Objective Vital Signs Date Time Temp Pulse Resp B/P (MAP) Pulse Ox O2 Delivery O2 Flow Rate FiO2 06/17/17 09:16 97.7 84 16 145/60 (88) 94 06/17/17 04:00 98.6 60 18 133/61 (85) 100 06/17/17 00:00 98.6 60 16 115/64 (81) 98 06/16/17 21:00 59 06/16/17 20:00 98.9 60 18 120/54 (76) 99 06/16/17 16:00 96.9 71 18 138/67 (90) 95 06/16/17 12:00 97.2 66 18 101/68 (79) 96 I/O 06/16/17 06/16/17 06/16/17 06/17/17 06/17/17 06/17/17 07:00 15:00 23:00 07:00 15:00 23:00 Intake Total 1482 ml 2200 ml Output Total 600 ml 900 ml 450 ml 1400 ml Balance 882 ml -900 ml -450 ml 800 ml Intake Oral 420 ml 800 ml IV Total 1062 ml 1400 ml Output Urine Total 600 ml 900 ml 450 ml 1400 ml # Bowel Movements 1 1 Result Diagram: 06/15/17 0930 06/17/17 0641 Objective Remarks No slurred speech, no facial droop Abdomen is soft, nontender, no suprapubic tenderness Has Parsons catheter in place, urine appears yellow green A/P Assessment and Plan syncope - resolved - 2/2 to metabolic acidosis 2/2 ARF - IVFs, telemetry ARF on CKD - Improving Appreciate nephrology's were immunizations, continue IV fluids, trend BMP in a.m. Right-sided weakness - Apparently chronic, not acute; - Continue PT OT, will likely just need a walker upon discharge - will workup with cervical MRI w/o contrast for suspected impingement causes symptoms Restless leg - Suspect this is from possible iron deficiency anemia from her chronic kidney disease - continue home ropinirole Smith Hood MD Jun 17, 2017 11:04
[2017-06-17] MEDS: FERROUS SULFATE 325 MG (65 MG ELEMENTAL IRON) TAB PO SCH ×2 (11:16→17:53)
--- NOTE | 2017-06-17 13:33 | RADRPT ---
EXAM DATE/TIME: 06/17/2017 12:59 [facility] COMPARISON: CT CERVICAL SPINE W/O CONTRAST, June 15, 2017, 10:03. INDICATIONS : Cephalgia abnormal cervical spine CT demonstrating severe degenerative change.. MEDICAL HISTORY : Renal failure, chronic. SURGICAL HISTORY : Appendectomy. Detached retina surgery ENCOUNTER: Initial ACUITY: 1 day PAIN SCORE: 0/10 LOCATION: [place] TECHNIQUE: Multiplanar, multisequence MRI examination of the cervical spine was performed. FINDINGS: VERTEBRAE: Normal vertebral body height. Homogeneous marrow signal. ALIGNMENT: No evidence of subluxation. DISCS: Diffuse degenerative changes are noted with desiccation and mild disc space narrowing. This is g reatest at the C4-5, C5-6 and C6-7 levels with mild anterior spurring. Anterior extradural defec ts noted on the sagittal images at the C3-4 through C6-7 level. CORD: Normal configuration and signal. POST FOSSA: The cerebellar tonsils are normal in position. C2-C3: The thecal sac has a normal configuration. There is no evidence of disc herniation or spinal canal s tenosis. The neural foramina are patent bilaterally. C3-C4: There is a broad-based posterior disc protrusion versus bulge which meets the anterior cord with flat tening and obliteration of the CSF space surrounding the cord. The residual AP diameter of the canal measures approximately 6-7 mm. The neural foramina are patent. C4-C5: Posterior disc bulge which comes into contact with anterior cord with mild flattening and no abnormal signal. The CSF space surrounding the cord is obliterated and the residual AP diameter of the canal measures approximately 8 mm. There is mild narrowing of the neural foramina bilaterally. C5-C6: There is a posterior disc bulge which comes in close contact with the anterior cord with slight cony ening. The CSF space surrounding the cord is nearly totally obliterated and the residual AP diameter of the canal measures approximately 8 mm. There is minimal residual CSF surrounding portions of the c ord and the residual AP diameter of the canal measures 8 mm. There is moderate narrowing of the neura l foramina left greater than right. C6-C7: Mild disc bulge is comes in contact with anterior cord with mild flattening. The CSF space around the cord is nearly totally obliterated and residual AP diameter of canal measures 7-8 mm. There is mild narrowing of the left neural foramina. C7-T1: The thecal sac has a normal configuration. There is no evidence of disc herniation or spinal canal s tenosis. The neural foramina are patent bilaterally. CONCLUSION: 1. Borderline central canal stenosis at the C3-4 through C6-7 levels with mild flattening of the cord secondary to disc bulges at the C4-5 through C6-7 level and broad-based disc bulge versus protrusion at C3-4. 2. Degenerative disc changes greatest at the C4-5 through C6-7 levels. 3. Narrowing of the neural foramina at multiple levels as described. Aldo Lockhart MD on June 17, 2017 at 13:21 Board Certified Radiologist. This report was verified electronically.
[2017-06-17] MEDS: SODIUM BICARBONATE 8.4% INJ 75 MEQ in SODIUM CHLOR 0.45% 1000 ML INJ 1,000 ML IV SCH (15:45)
[2017-06-17] MEDS ORDERED: LEVOFLOXACIN 250 MG TAB PO SCH (18:00)
--- NOTE | 2017-06-17 18:16 | ECHRPT ---
Indication: stroke CONCLUSIONS Normal left ventricular size. Wall thickness is normal. The left ventricular systolic function is normal with an estimated ejection fraction in the range of 55-60%. Mitral annular calcification is present. Trace mitral valve regurgitation. There is mild tricuspid valve regurgitation. The estimated pulmonary arterial pressure is 45 mmHg. BP: / HR: Rhythm: Atrial fibrillation MEASUREMENTS (Male / Female) Normal Values Technical Quality:Good 2D ECHO LV Diastolic Diameter PLAX 4.2 cm 4.2 - 5.9 / 3.9 - 5.3 cm LV Systolic Diameter PLAX 3.1 cm IVS Diastolic Thickness 0.8 cm 0.6 - 1.0 / 0.6 - 0.9 cm LVPW Diastolic Thickness 0.7 cm 0.6 - 1.0 / 0.6 - 0.9 cm LV Relative Wall Thickness 0.4 RV Internal Dim ED PLAX 2.0 cm LVOT Diameter 2.9 cm LA Systolic Diameter LX 3.9 cm 3.0 - 4.0 / 2.7 - 3.8 cm M-MODE AV Cusp Separation MM 1.5 cm DOPPLER MR Peak Velocity 361.0 cm/s MR Peak Gradient 52.1 mmHg Mitral E Point Velocity 105.0 cm/s Mitral A Point Velocity 75.5 cm/s Mitral E to A Ratio 1.4 LV E' Lateral Velocity 8.3 cm/s Mitral E to LV E' Lateral Ratio 12.7 LV E' Septal Velocity 10.7 cm/s Mitral E to LV E' Septal Ratio 9.8 TR Peak Velocity 335.0 cm/s TR Peak Gradient 44.9 mmHg FINDINGS LEFT VENTRICLE Normal left ventricular size. Wall thickness is normal. The left ventricular systolic function is normal with an estimated ejection fraction in the range of 55-60%. RIGHT VENTRICLE Normal right ventricular size and systolic function. LEFT ATRIUM The left atrial size is normal. RIGHT ATRIUM The right atrial size is normal. ATRIAL SEPTUM Normal atrial septal thickness without atrial level shunting by limited color doppler interrogation. AORTA The aortic root and proximal ascending aorta are normal in size on limited imaging. MITRAL VALVE Mitral annular calcification is present. Trace mitral valve regurgitation. AORTIC VALVE Trileaflet aortic valve. No aortic valve stenosis or regurgitation. TRICUSPID VALVE There is mild tricuspid valve regurgitation. The estimated pulmonary arterial pressure is 45 mmHg. PULMONARY VALVE The pulmonary valve is not well visualized. VESSELS The inferior vena cava is normal in size. PERICARDIUM No pericardial effusion. Shagufta Pollack MD (Electronically Signed) Final Date:17 June 2017 18:15
--- NOTE | 2017-06-17 19:38 | HHI.NPPN ---
Subjective History of Present Illness 77 year old with ARF/CKD UTI Dehydration Review of Systems General Constitutional: Fatigue Objective Data Data 06/17/17 06/18/17 19:00 07:00 Intake Total 1200 ml Output Total 1250 ml Balance -50 ml Intake Oral 1000 ml IV Total 200 ml Output Urine Total 1250 ml # Voids 4 # Bowel Movements 4 Vital Signs Date Time Temp Pulse Resp B/P (MAP) Pulse Ox O2 Delivery O2 Flow Rate FiO2 06/17/17 18:41 97.0 64 18 128/77 (94) 99 06/17/17 16:21 63 06/17/17 14:55 98.0 65 18 145/68 (93) 99 06/17/17 12:30 61 06/17/17 09:16 97.7 84 16 145/60 (88) 94 06/17/17 06:56 62 06/17/17 04:00 98.6 60 18 133/61 (85) 100 06/17/17 00:00 98.6 60 16 115/64 (81) 98 06/16/17 21:00 59 06/16/17 20:00 98.9 60 18 120/54 (76) 99 -: 06/15/17 0930 06/17/17 0641 Physical Exam General Appearance: Well Developed Neck Neck Exam: Neck Supple Pulmonary Resp Exam: Clear Bilaterally, Breath Sounds Equal Cardiology CV Exam: Irregular Gastrointestinal/Abdomen GI Exam: Soft, Non-Tender, Bowel Sounds Present Extremeties Extremities Exam: No Edema Assessment/Plan Problem List: (1) Acute on chronic kidney failure ICD Codes: N17.9 - Acute kidney failure, unspecified; N18.9 - Chronic kidney disease, unspecified Status: Acute Plan: Patient is dehydrated she has hyperchloremic metabolic acidosis UTI treated Renal functions continue to get better creatinine 4.3 IV fluids changed to half and half with 75 mEq of sodium bicarbonate She requested to change to regular diet titrated to heart healthy diet She has dumping syndrome and said she feels hungry all the time and nothing stays in her system for too long If the creatinine continues to improve 4 or less she can be monitored as an outpatient Okay to discharge from nephrology point of view once dehydration is resolved (2) Hypokalemia ICD Codes: E87.6 - Hypokalemia; N18.9 - Chronic kidney disease, unspecified Status: Acute Plan: Due to chronic diarrhea (3) History of colon cancer ICD Codes: Z85.038 - History of colon cancer Status: Acute Plan: Patient has surgical resection (4) Chronic kidney disease, stage III (moderate) ICD Codes: N18.3 - Chronic kidney disease, stage III (moderate) Status: Acute Plan: As above creatinine 1.7 (5) Acidosis, metabolic ICD Codes: E87.2 - Acidosis Status: Acute Plan: Patient has a hyperchloremic metabolic acidosis due to chronic diarrhea (6) UTI (lower urinary tract infection) ICD Codes: N39.0 - Urinary tract infection, site not specified Plan: Follow cultures signs started on Levaquin 250 mg every 48 hours Problem Qualifiers (1) Acute on chronic kidney failure: Qualified Codes: N17.9 - Acute kidney failure, unspecified; N18.9 - Chronic kidney disease, unspecified Bernardo Rubio MD Jun 17, 2017 19:38
[2017-06-17] MEDS: ATORVASTATIN 40 MG TAB PO SCH (20:28)
--- NOTE | 2017-06-17 20:54 | EKG ---
Date Performed: 06/16/2017 Time Performed: 13:24:13 PTAGE: 77 years EKG: Sinus rhythm WITH OCCASIONAL SUPRAVENTRICULAR PREMATURE COMPLEXES BORDERLINE ECG PREVIOUS TRACING : 06/15/2017 09.38 DOCTOR: Shagufta Pollack Interpretating Date/Time 06/17/2017 20:48:10
--- NOTE | 2017-06-17 21:17 | EKG ---
Date Performed: 06/15/2017 Time Performed: 09:38:54 PTAGE: 77 years EKG: Sinus rhythm WITH MARKED SINUS ARRHYTHMIA BORDERLINE ECG PREVIOUS TRACING : 06/28/2014 16.46 DOCTOR: Shagufta Pollack Interpretating Date/Time 06/17/2017 21:04:50
[2017-06-18] VITALS: BP 139/64; PULSE 72; RESP 18; TEMP 97.2; O2SAT 98
[2017-06-18] MEDS: SODIUM BICARBONATE 8.4% INJ 75 MEQ in SODIUM CHLOR 0.45% 1000 ML INJ 1,000 ML IV SCH ×2 (05:28→20:23)
[2017-06-18] MEDS: HEPARIN SODIUM - SQ 10,000 UNITS/ML VIAL SQ SCH ×3 (05:31→20:23)
[2017-06-18 07:23] LABS: ALBUMIN 2.9 GM/DL (3.4-5.0); BICARBONATE 14.7 MEQ/L (21.0-32.0); CALCIUM 7.5 MG/DL (8.5-10.1); CREATININE 4.1 MG/DL (0.50-1.00); PHOSPHORUS 3.4 MG/DL (2.5-4.9)
[2017-06-18 08:00] VITALS: BP 139/64; PULSE 74; RESP 16; TEMP 97.6; O2SAT 99
[2017-06-18] MEDS: ASPIRIN 325 MG TAB PO SCH (08:42)
--- NOTE | 2017-06-18 11:06 | HHI.PR ---
Subjective Remarks Nursing denies any acute deterioration since last night. Patient states that her Parsons was inserted in the emergency room. Denies having any suprapubic urinary symptoms prior to admission despite UTI being confirmed on culture. Denies any lightheadedness. She says she worked well with therapy yesterday. Objective Vital Signs Date Time Temp Pulse Resp B/P (MAP) Pulse Ox O2 Delivery O2 Flow Rate FiO2 06/18/17 08:00 97.6 74 16 139/64 (89) 99 06/18/17 00:00 97.2 72 18 139/64 (89) 98 06/17/17 20:00 96.8 67 20 126/60 (82) 99 06/17/17 18:41 97.0 64 18 128/77 (94) 99 06/17/17 16:21 63 06/17/17 14:55 98.0 65 18 145/68 (93) 99 06/17/17 12:30 61 I/O 06/17/17 06/17/17 06/17/17 06/18/17 06/18/17 06/18/17 07:00 15:00 23:00 07:00 15:00 23:00 Intake Total 2200 ml 1680 ml 1555 ml Output Total 1400 ml 950 ml 300 ml 1250 ml Balance 800 ml -950 ml 1380 ml 305 ml Intake Oral 800 ml 1480 ml 480 ml IV Total 1400 ml 200 ml 1075 ml Output Urine Total 1400 ml 950 ml 300 ml 1250 ml # Voids 6 # Bowel Movements 4 4 Result Diagram: 06/15/17 0930 06/18/17 0600 Objective Remarks No slurred speech, no facial droop Abdomen is soft, nontender, no suprapubic tenderness Has Parsons catheter in place, urine appears yellow green A/P Assessment and Plan syncope - resolved ARF on CKD - Improving Appreciate nephrology's were immunizations, continue IV fluids, trend BMP in a.m. - Anticipate discharge tomorrow once creatinine touches 4.0 Right-sided weakness - Apparently chronic, not acute; - Continue PT OT, will likely just need a walker upon discharge - cervical MRI showing disc contact w/ cord at C3-4, explained to patient that she can follow-up with this as an outpatient with neurology possibly get a EMG and or nerve conduction study Restless leg - Suspect this is from possible iron deficiency anemia from her chronic kidney disease - continue home ropinirole Smith Hood MD Jun 18, 2017 11:06
[2017-06-18 12:00] VITALS: BP 135/63; PULSE 66; RESP 16; TEMP 97.6; O2SAT 99
[2017-06-18] MEDS: FERROUS SULFATE 325 MG (65 MG ELEMENTAL IRON) TAB PO SCH ×2 (13:30→16:54)
[2017-06-18 16:00] VITALS: BP 142/65; PULSE 66; RESP 16; TEMP 97.2; O2SAT 99
--- NOTE | 2017-06-18 18:25 | HHI.NPPN ---
Subjective History of Present Illness 77 year old with ARF/CKD UTI Dehydration Review of Systems General Constitutional: Fatigue Objective Data Data 06/18/17 06/19/17 19:00 07:00 Intake Total 480 ml Output Total 1150 ml Balance -670 ml Intake Oral 480 ml Output Urine Total 1150 ml # Voids 3 # Bowel Movements 5 Vital Signs Date Time Temp Pulse Resp B/P (MAP) Pulse Ox O2 Delivery O2 Flow Rate FiO2 06/18/17 16:00 97.2 66 16 142/65 (90) 99 06/18/17 12:00 97.6 66 16 135/63 (87) 99 06/18/17 08:00 97.6 74 16 139/64 (89) 99 06/18/17 00:00 97.2 72 18 139/64 (89) 98 06/17/17 20:00 96.8 67 20 126/60 (82) 99 06/17/17 18:41 97.0 64 18 128/77 (94) 99 -: 06/15/17 0930 06/18/17 0600 Physical Exam General Appearance: Well Developed Neck Neck Exam: Neck Supple Pulmonary Resp Exam: Clear Bilaterally, Breath Sounds Equal Cardiology CV Exam: Irregular Gastrointestinal/Abdomen GI Exam: Soft, Non-Tender, Bowel Sounds Present Extremeties Extremities Exam: No Edema Assessment/Plan Problem List: (1) Acute on chronic kidney failure ICD Codes: N17.9 - Acute kidney failure, unspecified; N18.9 - Chronic kidney disease, unspecified Status: Acute Plan: Patient is dehydrated she has hyperchloremic metabolic acidosis UTI treated Renal functions continue to get better creatinine 4.1 Okay to discharge from nephrology point of view once dehydration is resolved (2) Hypokalemia ICD Codes: E87.6 - Hypokalemia; N18.9 - Chronic kidney disease, unspecified Status: Acute Plan: Due to chronic diarrhea (3) History of colon cancer ICD Codes: Z85.038 - History of colon cancer Status: Acute Plan: Patient has surgical resection (4) Chronic kidney disease, stage III (moderate) ICD Codes: N18.3 - Chronic kidney disease, stage III (moderate) Status: Acute Plan: As above creatinine 1.7 (5) Acidosis, metabolic ICD Codes: E87.2 - Acidosis Status: Acute Plan: Patient has a hyperchloremic metabolic acidosis due to chronic diarrhea (6) UTI (lower urinary tract infection) ICD Codes: N39.0 - Urinary tract infection, site not specified Plan: Follow cultures signs started on Levaquin 250 mg every 48 hours Problem Qualifiers (1) Acute on chronic kidney failure: Qualified Codes: N17.9 - Acute kidney failure, unspecified; N18.9 - Chronic kidney disease, unspecified Bernardo Rubio MD Jun 18, 2017 18:25
[2017-06-18] MEDS: ATORVASTATIN 40 MG TAB PO SCH (19:53)
[2017-06-18 20:00] VITALS: BP 147/66; PULSE 72; PULSE 74; RESP 18; TEMP 97.3; O2SAT 98
[2017-06-19] VITALS: BP 132/65; PULSE 65; RESP 16; TEMP 97.6; O2SAT 98
[2017-06-19 04:00] VITALS: BP 140/65; PULSE 69; RESP 18; TEMP 97; O2SAT 98
[2017-06-19] MEDS: HEPARIN SODIUM - SQ 10,000 UNITS/ML VIAL SQ SCH (05:20)
[2017-06-19 07:15] LABS: BICARBONATE 15.5 MEQ/L (21.0-32.0); CALCIUM 7.6 MG/DL (8.5-10.1); CREATININE 3.9 MG/DL (0.50-1.00)
[2017-06-19 08:00] VITALS: BP 147/65; PULSE 67; RESP 20; TEMP 96.8; O2SAT 99
[2017-06-19] MEDS: SODIUM BICARBONATE 8.4% INJ 75 MEQ in SODIUM CHLOR 0.45% 1000 ML INJ 1,000 ML IV SCH (09:52)
[2017-06-19] MEDS: ASPIRIN 325 MG TAB PO SCH (09:52)
[2017-06-19] MEDS ORDERED: LEVA250T14 PO (10:36)
--- NOTE | 2017-06-19 10:37 | HHI.DCPOC ---
Discharge Care Plan Diagnosis: (1) UTI (lower urinary tract infection) (2) Acidosis, metabolic (3) Acute on chronic kidney failure (4) Right-sided muscle weakness (5) Restless leg syndrome Goals to Promote Your Health * To prevent worsening of your condition and complications * To maintain your health at the optimal level Directions to Meet Your Goals Take your medications as prescribed Follow your dietary instruction Follow activity as directed Keep your appointments as scheduled Take your immunizations and boosters as scheduled If your symptoms worsen call your PCP, if no PCP go to Urgent Care Center or Emergency Room Smoking is Dangerous to Your Health. Avoid second hand smoke Call the 24-hour hour crisis hotline for domestic abuse at Smith Hood MD Jun 19, 2017 10:37
--- NOTE | 2017-06-19 10:37 | HHI.DCPOC ---
Discharge Care Plan Diagnosis: (1) UTI (lower urinary tract infection) (2) Acidosis, metabolic (3) Acute on chronic kidney failure (4) Right-sided muscle weakness (5) Restless leg syndrome Goals to Promote Your Health * To prevent worsening of your condition and complications * To maintain your health at the optimal level Directions to Meet Your Goals Take your medications as prescribed Follow your dietary instruction Follow activity as directed Keep your appointments as scheduled Take your immunizations and boosters as scheduled If your symptoms worsen call your PCP, if no PCP go to Urgent Care Center or Emergency Room Smoking is Dangerous to Your Health. Avoid second hand smoke Call the 24-hour hour crisis hotline for domestic abuse at Smith Hood MD Jun 19, 2017 10:37
--- NOTE | 2017-06-19 10:37 | HHI.DCPOC ---
Discharge Care Plan Diagnosis: (1) UTI (lower urinary tract infection) (2) Acidosis, metabolic (3) Acute on chronic kidney failure (4) Right-sided muscle weakness (5) Restless leg syndrome Goals to Promote Your Health * To prevent worsening of your condition and complications * To maintain your health at the optimal level Directions to Meet Your Goals Take your medications as prescribed Follow your dietary instruction Follow activity as directed Keep your appointments as scheduled Take your immunizations and boosters as scheduled If your symptoms worsen call your PCP, if no PCP go to Urgent Care Center or Emergency Room Smoking is Dangerous to Your Health. Avoid second hand smoke Call the 24-hour hour crisis hotline for domestic abuse at Smith Hood MD Jun 19, 2017 10:37
[2017-06-19] MEDS ORDERED: WALKER WHEELS/F1 MIS (10:43)
--- NOTE | 2017-06-19 10:44 | HHI.FF ---
Face to Face Verification Diagnosis: (1) Uremia syndrome (2) Right-sided muscle weakness Physical Therapy Order: Evaluate and Treat Occupational Therapy Order: Evaluate and Treat Home Health Nursing Order: Medical education Signs/symptoms of disease process Nursing assessment with vital signs I have seen patient Bouchra Camacho on 06/19/17. My clinical findings support the need for the requested home health care services because: Ltd mobility - disease progression Deconditioned w/ increased weakness I certify that my clinical findings support that this patient is homebound because: Unsteady gait/balance Smith Hood MD Jun 19, 2017 10:44
--- NOTE | 2017-06-19 10:45 | HHI.DS ---
Discharge Summary Admission Date Jun 15, 2017 at 11:27 Discharge Date: Jun 19, 2017 Admitting Diagnosis acute on chronic renal failure,uremia (1) HA (acute kidney injury) ICD Code: N17.9 - Acute kidney failure, unspecified (2) Right-sided muscle weakness ICD Code: M62.81 - Muscle weakness (generalized) (3) Chronic kidney disease, stage III (moderate) ICD Code: N18.3 - Chronic kidney disease, stage III (moderate) Status: Acute (4) Acidosis, metabolic ICD Code: E87.2 - Acidosis Status: Acute (5) UTI (lower urinary tract infection) ICD Code: N39.0 - Urinary tract infection, site not specified Procedures none Brief History - From Admission 77-year-old female being admitted for acute renal failure with strokelike symptoms. Patient was in her usual state of health until about 2 nights ago when she first reported falling off the toilet seat. At that time she thought she was simply tired due to having poor sleep due to substantial social stressors, but is unsure if she actually had a true syncopal episode or not. She came to rather quickly and was able to go to sleep that night. Her symptoms recurred again early this morning when she was cutting pineapples while standing and then apparently fell onto the floor on her backside. She denies having any substantial shortness of breath or chest pain or palpitations immediately proceeding during or after the event. When she woke up she found herself on the floor and had a headache. She was able to stand up but noted that she had a very staggered wobbly unstable gait, did not linger to one side more than the other. She also reports having transient visual changes for a few minutes where she saw "gorgeous colors." She then went outside where her neighbor - who was walking her dog - noticed that she had garbled speech. At that point the patient contacted one of her other friends to bring her to the emergency room. Patient denies any noncompliance with her medication regimen, reports taking all her meds regularly in the past few days. CBC/BMP: 06/15/17 0930 06/19/17 0537 Significant Findings Laboratory Tests Test 06/17/17 06:41 06/18/17 06:00 06/19/17 05:37 Blood Urea Nitrogen 47 MG/DL (7-18) 47 MG/DL (7-18) 42 MG/DL (7-18) Creatinine 4.30 MG/DL (0.50-1.00) 4.10 MG/DL (0.50-1.00) 3.90 MG/DL (0.50-1.00) Random Glucose 73 MG/DL (74-106) 72 MG/DL (74-106) Total Protein 5.6 GM/DL (6.4-8.2) Calcium Level 7.1 MG/DL (8.5-10.1) 7.5 MG/DL (8.5-10.1) 7.6 MG/DL (8.5-10.1) Chloride Level 118 MEQ/L (98-107) 119 MEQ/L (98-107) 113 MEQ/L (98-107) Carbon Dioxide Level 15.1 MEQ/L (21.0-32.0) 14.7 MEQ/L (21.0-32.0) 15.5 MEQ/L (21.0-32.0) Estimat Glomerular Filtration Rate 10 ML/MIN (>89) 11 ML/MIN (>89) 11 ML/MIN (>89) Protein Corrected Calcium 7.9 MG/DL (8.5-10.1) Albumin 2.9 GM/DL (3.4-5.0) Sodium Level 146 MEQ/L (136-145) PE at Discharge No acute distress, awake, alert Abdomen soft, nontender nondistended No facial droop, no slurred speech Hospital Course Patient was admitted, initially started on IV fluids and proceed with a stroke workup. No acute strokes are found, it was deemed that the patient's right- sided weakness was more chronic in nature. nephrology was also consulted, and with IV hydration the patient's metabolic acidosis resolved and her acute kidney injury had significantly improved. Ultrasound and echocardiograms were also unremarkable for any significant atherosclerotic disease that warranted further invasive intervention. Patient was counseled that she could go home and aggressively hydrate herself, she was being discharged on antibiotic given UTI. Patient has met maximal benefit from hospitalization and is clinically stable for discharge. Pt Condition on Discharge: Stable Discharge Disposition: Disch w/ Home Health Serv Discharge Time: > 30 minutes Discharge Instructions DIET: Follow Instructions for: Renal Failure Diet Activities you can perform: Weight Bearing as Pili, See Additionl Instruction Other Activity Instructions: Use wheeled walker while ambulating Follow up Referrals: Nephrology - 1 Week Neurology - 10 Days PCP Follow-up - 6 Weeks SNF/DETENTION/ with [facility] at Home New Medications: Walker with Front Wheels (Walker with Front Wheels) 1 Mis Mis EA .ROUTE DIRECTED, #1 0 Refills Use while ambulating Levofloxacin (Levaquin) 250 Mg Tablet 250 MG PO Q48H for UTI, #5 TAB Continued Medications: Calcium Carbonate-Cholecalciferol (Calcium 1000 + D) 1,000-800 Mg-Unit Tab 5 TAB PO SUNDAY, TAB Furosemide (Lasix) 20 Mg Tab 20 MG PO DAILY PRN for SWELLING, #30 TAB 0 Refills Potassium Chloride ER (Potassium Chloride ER) 20 Meq Tab 40 MEQ PO DAILY PRN for WITH LASIX, #30 TAB 0 Refills Prednisone (Prednisone) 10 Mg Tab 10 MG PO DAILY, TAB 0 Refills Ropinirole (Ropinirole) 2 Mg Tab 2 MG PO BID, #90 TAB 0 Refills Smith Hood MD Jun 19, 2017 10:45
== END 2017-06-19 12:32 | disposition home health service (06) | DRG 683 ==
LOC: PHED 09:35 → PHEDA 11:27 → PH3B 15:29
PROVIDERS: ADMIT Hospitalist; ATTEND Hospitalist
DX: N17.9 Acute kidney failure, unspecified (principal); E87.2 Acidosis; I48.91 Unspecified atrial fibrillation; K91.1 Postgastric surgery syndromes; M48.02 Spinal stenosis, cervical region; N39.0 Urinary tract infection, site not specified; E78.5 Hyperlipidemia, unspecified; R55 Syncope and collapse; E86.0 Dehydration; E87.6 Hypokalemia; D64.9 Anemia, unspecified; G25.81 Restless legs syndrome; H91.90 Unspecified hearing loss, unspecified ear; N18.3 Chronic kidney disease, stage 3 (moderate); Z85.038 Personal history of other malignant neoplasm of large intestine; M79.7 Fibromyalgia; Z92.21 Personal history of antineoplastic chemotherapy; Z92.3 Personal history of irradiation; Y83.2 Surgical operation with anastomosis, bypass or graft as the cause of abnormal reaction of the patient, or of later complication, without mention of misadventure at the time of the procedure; G89.29 Other chronic pain; F41.9 Anxiety disorder, unspecified; M54.2 Cervicalgia
CPT/HCPCS: 36600; 51702; 70450; 70551; 72125; 72141; 80048; 80069; 81001; 82728; 82805; 83540; 83735; 84155; 85025; 85610; 85730; 87077; 87086; 87186; 93005; 93306; 93880; J1644; J2765; J3480; J7030; J7120

== ENCOUNTER 2017-07-25 09:28 | Emergency (ER) | payer MEDICARE, OTHER ==
[~2017-07-25] VITALS: Ht 162.6 cm; Wt 61.0 kg
[~2017-07-25 09:28] MED LIST changes: -ASPI325T PO; -BROM0.072 LEFT EYE; -CALCCHW25 PO; +CALCTAB80 PO; -CYAN1000P SQ; +FURO1TAB62 PO; -FURO20TA PO; -GABA100C4 PO; +LEVA250T14 PO; -LISI-357 PO; -OMNI1SUS LEFT EYE; -OXYC-360 PO; +POTA-163 PO; -POTA10SO13 PO; +PRED10 PO; -REQU3TAB PO; +ROPI2TAB PO; -VIGA0.5D LEFT EYE; +WALKER WHEELS/F1 MIS; -[UNRECOGNIZED DRUG - CODE] OR
[2017-07-25 09:34] VITALS: BP 143/65; PULSE 65; RESP 18; TEMP 97.9; O2SAT 100
[2017-07-25 09:35] VITALS: RESP 16; O2SAT 100
[2017-07-25] MEDS ORDERED: SODIUM CHLORIDE 0.9% FLUSH 10 ML FLUSH IV FLUSH PRN (09:45)
[2017-07-25 09:54] LABS: AUTOMATED NEUTROPHIL # 3.2 TH/MM3 (1.8-7.7); BASOPHIL % 0.8 % (0.0-2.0); EOSINOPHIL # 0.1 TH/MM3 (0-0.4); EOSINOPHIL % 2.2 % (0.0-4.0); HEMATOCRIT 25.3 % (35.0-46.0); HEMO FLAGS DIFF FINAL; LYMPH % 16.3 % (9.0-44.0); LYMPHOCYTE # 0.7 TH/MM3 (1.0-4.8); MEAN CELL VOLUME 98.5 FL (80.0-100.0); MEAN CORPUSCULAR HEMOGLOBIN 32.1 PG (27.0-34.0); MEAN CORPUSCULAR HGB CONC 32.6 % (32.0-36.0); MONO % 10.1 % (0.0-8.0); NEUT % 70.6 % (16.0-70.0); PLATELET COUNT 166 TH/MM3 (150-450); RED BLOOD COUNT 2.57 MIL/MM3 (4.00-5.30); RED CELL DISTRIBUTION WIDTH 18.9 % (11.6-17.2); WHITE BLOOD COUNT 4.4 TH/MM3 (4.0-11.0)
--- NOTE | 2017-07-25 10:09 | PD ---
HPI Chief Complaint: GI Complaint Time Seen by Provider: 09:32 Travel History International Travel<30 days: No Contact w/Intl Traveler<30days: No Traveled to known affect area: No History of Present Illness HPI patient 77-year-old female presents the emergency department by EMS for evaluation of altered mental status. According to her and EMS the patient's aide noted that she had been hallucinating seeing things on the wall that weren' t there this morning. She has a history of frequent falls and recent head trauma not requiring any intervention. This was apparently worked up by an outside hospital. She also has a history of chronic kidney disease and states her creatinine runs about 3.8. She is alert and awake and oriented and provides what appears to be an accurate history. She only complains of a mild headache which she states is been present ever since her last fall 2 weeks ago. She also has a history of colon resection chronic diarrhea and does endorse some nausea and vomiting recently. She denies any chest pain shortness of breath abdominal pain decreased urinary output. Also has a history of recurrent urinary tract infections. Symptoms are quite mild,. Be resolved currently. Context as above, associated signs symptoms as above. 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) Endocrine: No Fibromyalgia: Yes Gastrointestinal Disorders: Yes ("chronic diarrhea" COLON RESECTION) Genitourinary: Yes Immune Disorder: Yes Kidney Stones: Yes (LITHOTRIPSY X 5) Musculoskeletal: No Neurologic: Yes Psychiatric: No Reproductive: No Respiratory: No : 2 Ovarian Cysts: Yes (and hx of ovarian tumors) Past Surgical History Abdominal Surgery: Yes ("part of large intestine removed,colon cancer") Appendectomy: Yes Cholecystectomy: Yes Hysterectomy: Yes Oral Surgery: Yes ("upper dentures") Other Surgery: Yes Social History Alcohol Use: No Tobacco Use: No Substance Use: No Allergies-Medications (Allergen,Severity, Reaction): Coded Allergies: Sulfa (Sulfonamide Antibiotics) (Unverified Allergy, Severe, hives, ) codeine (Unverified Allergy, Severe, vomiting, 07/25/17) erythromycin base (Unverified Allergy, Severe, hives, 07/25/17) meperidine (Unverified Allergy, Severe, Nausea/Vomiting, 07/25/17) pentazocine (Unverified Allergy, Severe, PROJECTILE VOMITING, HIVES, ) vancomycin (Unverified Allergy, Severe, 07/25/17) ondansetron (Unverified Allergy, Mild, Rash, 07/25/17) amoxicillin (Unverified Adverse Reaction, Severe, vomiting,cramp, 07/25/17) clavulanic acid (Unverified Adverse Reaction, Severe, vomiting,cramp, 07/25) Reported Meds & Prescriptions Reported Meds & Active Scripts Active Keflex (Cephalexin) 500 Mg Capsule 500 Mg PO Q6H 7 Days Reported Calcium Acetate (Phosphate Binder) 667 Mg Tab 1,334 Mg PO TID Sodium Bicarbonate 650 Mg Tab 1,300 Mg PO BIDPC Magox 400 (Magnesium Oxide) 400 Mg Tablet 1 Tab PO DAILY Baclofen 10 Mg Tab 10 Mg PO TID Famotidine 20 Mg Tab 20 Mg PO DAILY Ropinirole 2 Mg Tab 3 Mg PO BID Calcium 1000 + D (Calcium Carbonate-Cholecalciferol) 1,000-800 Mg-Unit Tab 5 Tab PO SUNDAY Potassium Chloride ER (Potassium Chloride) 20 Meq Tab 40 Meq PO DAILY PRN Lasix (Furosemide) 20 Mg Tab 20 Mg PO DAILY PRN Review of Systems Except as stated in HPI: all other systems reviewed are Neg Physical Exam Narrative GENERAL: Well-developed well-nourished, appears to be in no apparent distress. SKIN: Focused skin assessment warm/dry. HEAD: Atraumatic. Normocephalic. EYES: Pupils equal and round. No scleral icterus. No injection or drainage. ENT: No nasal bleeding or discharge. Mucous membranes pink and moist. NECK: Trachea midline. No JVD. CARDIOVASCULAR: Regular rate and rhythm. No murmur appreciated. RESPIRATORY: No accessory muscle use. Clear to auscultation. Breath sounds equal bilaterally. GASTROINTESTINAL: Abdomen soft, non-tender, nondistended. Hepatic and splenic margins not palpable. MUSCULOSKELETAL: No obvious deformities. No clubbing. No cyanosis. No edema. NEUROLOGICAL: Awake and alert. Cranial nerves II through XII are grossly intact and nonfocal, 5 out of 5 strength in all 4 extremities, alert and awake and oriented and able to provide her own history. PSYCHIATRIC: Appropriate mood and affect; insight and judgment normal. Data Data Last Documented VS Vital Signs Date Time Temp Pulse Resp B/P (MAP) Pulse Ox O2 Delivery O2 Flow Rate FiO2 07/25/17 13:37 73 157/70 (99) 97 07/25/17 12:15 16 Room Air 07/25/17 09:34 97.9 Orders Orders Electrocardiogram (07/25/17 09:32) Complete Blood Count With Diff (07/25/17 09:32) Comprehensive Metabolic Panel (07/25/17 09:32) Thyroid Stimulating Hormone (07/25/17 09:32) Urinalysis - C+S If Indicated (07/25/17 09:32) Ct Brain W/O Iv Contrast(Rout) (07/25/17 09:32) Blood Glucose (07/25/17 09:32) Ecg Monitoring (07/25/17 09:32) Iv Access Insert/Monitor (07/25/17 09:32) Oximetry (07/25/17 09:32) Sodium Chloride 0.9% Flush (Ns Flush) (07/25/17 09:45) Sodium Chlor 0.9% 1000 Ml Inj (Ns 1000 M (07/25/17 10:30) Potassium Chlor 10 Meq Premix (Kcl 10 Me (07/25/17 10:30) Potassium Chloride (Kcl) (07/25/17 10:30) Cath For Specimen (07/25/17 11:07) Ropinirole Hcl (Requip) (07/25/17 11:15) Urine Culture (07/25/17 11:30) Ed Discharge Order (07/25/17 12:18) Labs Laboratory Tests Test 07/25/17 09:45 07/25/17 11:30 White Blood Count 4.4 TH/MM3 Red Blood Count 2.57 MIL/MM3 Hemoglobin 8.3 GM/DL Hematocrit 25.3 % Mean Corpuscular Volume 98.5 FL Mean Corpuscular Hemoglobin 32.1 PG Mean Corpuscular Hemoglobin Concent 32.6 % Red Cell Distribution Width 18.9 % Platelet Count 166 TH/MM3 Mean Platelet Volume 7.0 FL Neutrophils (%) (Auto) 70.6 % Lymphocytes (%) (Auto) 16.3 % Monocytes (%) (Auto) 10.1 % Eosinophils (%) (Auto) 2.2 % Basophils (%) (Auto) 0.8 % Neutrophils # (Auto) 3.2 TH/MM3 Lymphocytes # (Auto) 0.7 TH/MM3 Monocytes # (Auto) 0.4 TH/MM3 Eosinophils # (Auto) 0.1 TH/MM3 Basophils # (Auto) 0.0 TH/MM3 CBC Comment DIFF FINAL Differential Comment Blood Urea Nitrogen 37 MG/DL Creatinine 3.70 MG/DL Random Glucose 91 MG/DL Total Protein 6.1 GM/DL Albumin 3.5 GM/DL Calcium Level 7.8 MG/DL Alkaline Phosphatase 50 U/L Aspartate Amino Transf (AST/SGOT) 18 U/L Alanine Aminotransferase (ALT/SGPT) 31 U/L Total Bilirubin 0.3 MG/DL Sodium Level 145 MEQ/L Potassium Level 2.8 MEQ/L Chloride Level 117 MEQ/L Carbon Dioxide Level 15.1 MEQ/L Anion Gap 13 MEQ/L Estimat Glomerular Filtration Rate 12 ML/MIN Thyroid Stimulating Hormone 3rd Gen 2.350 uIU/ML Urine Collection Type CLEAN CATCH Urine Color YELLOW Urine Turbidity SLIGHT Urine pH 5.5 Urine Specific Prue 1.012 Urine Protein 30 mg/dL Urine Glucose (UA) NEG mg/dL Urine Ketones NEG mg/dL Urine Occult Blood SMALL Urine Nitrite POS Urine Bilirubin NEG Urine Leukocyte Esterase LARGE Urine RBC 15-19 /hpf Urine WBC 100-200 /hpf Urine Squamous Epithelial Cells > 8 /hpf Urine Bacteria MANY /hpf Microscopic Urinalysis Comment CULTURE INDICATED Urine Collection Time 11:30 [facility] Medical Decision Making Medical Screen Exam Complete: Yes Emergency Medical Condition: Yes Differential Diagnosis delirium, urinary tract infection, intracranial hemorrhage, history of closed head injury, frequent falls, uremic encephalopathy, sepsis unlikely, anemia Narrative Course Patient roomed emerged from her, she states that her hemoglobin usually runs around 7, 8.3 today. She appears well and in no distress. She was able to give her complete history and then when family arrives stating that she was still seeing colors on the wall. Alert and awake and oriented she is able to make her own medical decisions. She states that her creatinine usually runs around 3.8 and seems to be at baseline based on that history. Hypokalemic and evidence for some mild dehydration she was given a liter of fluid, she had received 500 cc from EMS. She also was given potassium by IV and by mouth. Has urinary tract infection as evidenced by nitrate positive urine. At this point the remainder of her labs are unremarkable, she is alert and awake and oriented and does not meet admission criteria at this time. Patient is coming by her daughter who is concerned about the abrupt onset of the symptoms, had discussion with her that she needs to follow up with her regular physician. She would also like to talk with case management for ongoing care as she is leaving in 2 days to return to her home and will not be able to care for her mother anymore. global product manager spent significant time with patient and her family and ultimately has referred them to hospice as well which is an appropriate referral given that the patient does not want dialysis. Diagnosis Primary Impression: UTI (lower urinary tract infection) Additional Impression: Delirium Med/Other Pt SpecificInfo: Prescription(s) given Scripts Cephalexin (Keflex) 500 Mg Capsule 500 MG PO Q6H for Infection for 7 Days, #28 CAP 0 Refills Prov: Valentín Malik MD 07/25/17 Disposition: 01 DISCHARGE HOME Condition: Stable Valentín Malik MD Jul 25, 2017 10:09
[2017-07-25 10:10] LABS: ANION GAP 13 MEQ/L (5-15); GLOMERULAR FILTRATION RATE 12 ML/MIN (>89)
--- NOTE | 2017-07-25 10:18 | RADRPT ---
EXAM DATE/TIME: 07/25/2017 09:47 [place] COMPARISON: CT BRAIN W/O CONTRAST, June 15, 2017, 10:03. INDICATIONS : Altered mental status. RADIATION DOSE: 64.28 CTDIvol (mGy) ; Patient motion MEDICAL HISTORY : Carcinoma, colon. SURGICAL HISTORY : Appendectomy. Cholecystectomy.Hysterectomy. ENCOUNTER: Initial ACUITY: 1 day PAIN SCALE: 0/10 LOCATION: cranial TECHNIQUE: Multiple contiguous axial images were obtained of the head. Using automated exposure control and adj ustment of the mA and/or kV according to patient size, radiation dose was kept as low as reasonably a chievable to obtain optimal diagnostic quality images. DICOM format image data is available electro nically for review and comparison. FINDINGS: CEREBRUM: The ventricles are normal for age. No evidence of midline shift, mass lesion, hemorrhage or acute in farction. No extra-axial fluid collections are seen. POSTERIOR FOSSA: The cerebellum and brainstem are intact. The 4th ventricle is midline. The cerebellopontine angle i s unremarkable. EXTRACRANIAL: The visualized portion of the orbits is intact. SKULL: The calvaria is intact. No evidence of skull fracture. CONCLUSION: 1. Stable evaluation of the brain. 2. No evidence of acute infarct, hemorrhage, mass or edema. José Luis Cortez MD on July 25, 2017 at 10:13 Board Certified Radiologist. This report was verified electronically.
[2017-07-25 10:20] VITALS: BP 146/53; PULSE 69; RESP 16
[2017-07-25 10:22] LABS: ALKALINE PHOSPHATASE 50 U/L (45-117); ALT (GPT) 31 U/L (10-53); AST (GOT) 18 U/L (15-37); BICARBONATE 15.1 MEQ/L (21.0-32.0); BLOOD UREA NITROGEN 37 MG/DL (7-18); CHLORIDE 117 MEQ/L (98-107); SODIUM (NA) 145 MEQ/L (136-145); TOTAL BILIRUBIN ADULT 0.3 MG/DL (0.2-1.0)
[2017-07-25 10:23] LABS: POTASSIUM 2.8 MEQ/L (3.5-5.1)
[2017-07-25] MEDS ORDERED: SODIUM CHLOR 0.9% 1000 ML INJ 1,000 ML IV ONE (10:30)
[2017-07-25] MEDS ORDERED: POTASSIUM CHLOR 10 MEQ PREMIX 100 ML IV ONE (10:30)
[2017-07-25] MEDS ORDERED: POTASSIUM CHLORIDE 20 MEQ CONTROLLED RELEASE TAB PO ONE (10:30)
[2017-07-25] MEDS ORDERED: CALC667T PO (10:36)
[2017-07-25] MEDS ORDERED: FAMO20TA2 PO (10:36)
[2017-07-25] MEDS ORDERED: SODI650T PO (10:36)
[2017-07-25] MEDS ORDERED: BACL10TA PO (10:36)
[2017-07-25] MEDS ORDERED: MAGO400T2 PO (10:36)
[2017-07-25 11:00] VITALS: BP 133/78; PULSE 70; RESP 16; O2SAT 97
[2017-07-25 11:45] LABS: BLOOD, URINE SMALL (NEG); GLUCOSE,URINE NEG (NEG); KETONE, URINE NEG (NEG); NITRITE,URINE POS (NEG); PH, URINE 5.5 (5.0-8.5)
[2017-07-25 11:47] LABS: URINE COLOR YELLOW (YELLW/STRAW)
[2017-07-25 11:50] LABS: BACTERIA, URINE MANY /hpf; COMMENT (UR) CULTURE INDICATED; CULTURE IF INDICATED CULTURE INDICATED; METHOD OF COLLECTION CLEAN CATCH; RBC, URINE 15-19 /hpf (0-3); SQUAMOUS EPITHELIAL CELL URINE > 8 /hpf (0-5); WBC, URINE 100-200 /hpf (0-5)
[2017-07-25] MEDS ORDERED: CEPH-460 PO (12:00)
[2017-07-25 12:15] VITALS: BP 151/79; PULSE 72; RESP 16; O2SAT 97
[2017-07-25 13:37] VITALS: BP 157/70
--- NOTE | 2017-07-26 10:31 | EKG ---
Date Performed: 07/25/2017 Time Performed: 09:40:54 PTAGE: 77 years EKG: Sinus rhythm WITH OCCASIONAL SUPRAVENTRICULAR PREMATURE COMPLEXES BORDERLINE ECG PREVIOUS TRACING : 06/16/2017 13.24 Compared to prior tracing no significant change DOCTOR: Gunner Almonte Interpretating Date/Time 07/26/2017 10:29:56
== END 2017-07-25 13:46 | disposition home or self-care (01) ==
LOC: PHED 09:28
DX: N39.0 Urinary tract infection, site not specified (principal); R41.0 Disorientation, unspecified; R94.31 Abnormal electrocardiogram [ECG] [EKG]; R44.1 Visual hallucinations; R82.90 Unspecified abnormal findings in urine; D64.9 Anemia, unspecified; N18.9 Chronic kidney disease, unspecified; Z91.81 History of falling
CPT/HCPCS: 70450; 80053; 81001; 84443; 85025; 87077; 87086; 87186; 93005; 96361; 96365; 99285; J3480; J7030